=== PATIENT | female | born 1945 | race Caucasian/White ===

== ENCOUNTER 2017-06-06 20:39 | Emergency (ER) | payer MEDICARE ==
[~2017-06-06] VITALS: Ht 157.5 cm; Wt 60.0 kg
[2017-06-06] MEDS ORDERED: ASPIRIN81 MG PO (20:50)
[2017-06-06] MEDS ORDERED: ZOCOR20 M1 PO (20:50)
[2017-06-06] MEDS ORDERED: MULTIVITAMI1 PO (20:51)
[2017-06-06] MEDS ORDERED: FISH OIL1000 MG PO (20:51)
[2017-06-06] MEDS ORDERED: CO Q 10100 MG PO (20:51)
[2017-06-06 21:39] LABS: URINE BILIRUBIN - DIPSTICK NEGATIVE (NEGATIVE); URINE BLOOD DIPSTICK TRACE-INTACT (NEGATIVE); URINE CLARITY CLEAR; URINE COLOR YELLOW; URINE GLUCOSE - DIPSTICK NEGATIVE (NEGATIVE); URINE KETONE NEGATIVE (NEGATIVE); URINE LEUK ESTERASE NEGATIVE (NEGATIVE); URINE NITRITE - DIPSTICK NEGATIVE (Negative); URINE PH 6.5 (4.5-8.0); URINE PROTEIN - DIPSTICK NEGATIVE (NEG-TRACE); URINE UROBILINOGEN - DIPSTICK 0.2 E.U./dL (0.2)
[2017-06-06 21:40] LABS: HEMATOCRIT 39.5 % (37.0-47.0); HEMOGLOBIN 13.8 g/dl (12.0-16.0); IMMATURE GRANULOCYTES 0.3 % (0.0-1.0); MEAN CELL VOLUME 89.6 fL CALC (80.0-100.0); MEAN CORPUSCULAR HGB 31.3 pG CALC (26.0-32.0); MEAN CORPUSCULAR HGB CONC 34.9 g/L CALC (32.0-36.0); NEUT# 8.13 thou/uL (2.00-7.15); RED BLOOD COUNT 4.41 mill/uL (4.20-5.60); RED CELL DISTRI WIDTH 12.4 % (11.5-15.5)
[2017-06-06 21:59] LABS: ALBUMIN 4.9 g/dL (3.2-5.0); ALKALINE PHOSPHATASE 87 u/l (38-126); ANION GAP 17 (6-22 (CALC)); BILIRUBIN, TOTAL 0.6 mg/dL (0.0-1.4); BUN 16 mg/dL (8-23); BUN/CREATININE RATIO 15 (12-20 (CALC)); CALCIUM 9.6 mg/dL (8.4-10.2); CARBON DIOXIDE 24 mmol/l (22-30); CHLORIDE 93 mmol/l (95-108); CREATININE 1.1 mg/dL (0.5-1.0); GFR 49 ML/MIN (>=60 (CALC)); GFR FOR AFR.AMER. 59 ML/MIN (>=60 (CALC)); GLUCOSE 135 mg/dL (82-115); POTASSIUM 3.5 mmol/l (3.5-5.1); SGOT/AST 37 u/l (9-36); SGPT/ALT 32 u/l (11-66); SODIUM 131 mmol/l (137-146)
[2017-06-06 22:12] LABS: MYOGLOBIN 47 ng/mL (0 - 62)
[2017-06-06 22:30] LABS: TSH, 3RD GENERATION 6.46 uIU/mL (0.47 - 4.68)
[2017-06-06 23:09] VITALS: BP 202/82
== END 2017-06-06 23:13 | disposition home or self-care (01) ==
LOC: ED 20:39
DX: I10 Essential (primary) hypertension (principal); R42 Dizziness and giddiness; R94.6 Abnormal results of thyroid function studies

== ENCOUNTER 2017-06-08 13:51 | Inpatient (IN) | payer MEDICARE ==
[2017-06-08] VITALS (10 sets, daily range): BP systolic 116–198; BP diastolic 47–100
[~2017-06-08] VITALS: Ht 157.5 cm; Wt 60.4 kg
[~2017-06-08 13:51] MED LIST: ASPIRIN81 MG PO; CO Q 10100 MG PO; FISH OIL1000 MG PO; MULTIVITAMI1 PO; ZOCOR20 M1 PO
[2017-06-08 14:42] LABS: HEMATOCRIT 45.4 % (37.0-47.0); HEMOGLOBIN 15.5 g/dl (12.0-16.0); IMMATURE GRANULOCYTES 0.4 % (0.0-1.0); MEAN CELL VOLUME 90.8 fL CALC (80.0-100.0); MEAN CORPUSCULAR HGB CONC 34.1 g/L CALC (32.0-36.0); NEUT# 6.67 thou/uL (2.00-7.15); RED CELL DISTRI WIDTH 12.9 % (11.5-15.5)
[2017-06-08 15:15] LABS: ALBUMIN 5.1 g/dL (3.2-5.0); ALKALINE PHOSPHATASE 99 u/l (38-126); ANION GAP 19 (6-22 (CALC)); BILIRUBIN, TOTAL 0.6 mg/dL (0.0-1.4); BUN 17 mg/dL (8-23); BUN/CREATININE RATIO 20 (12-20 (CALC)); CALCIUM 10.2 mg/dL (8.4-10.2); CARBON DIOXIDE 22 mmol/l (22-30); CHLORIDE 101 mmol/l (95-108); CREATININE 0.8 mg/dL (0.5-1.0); GFR > 60 ML/MIN (>=60 (CALC)); GFR FOR AFR.AMER. > 60 ML/MIN (>=60 (CALC)); GLUCOSE 92 mg/dL (82-115); POTASSIUM 4.2 mmol/l (3.5-5.1); SGOT/AST 35 u/l (9-36); SGPT/ALT 39 u/l (11-66); SODIUM 137 mmol/l (137-146); TOTAL PROTEIN 8.2 g/dL (6.3-8.2)
[2017-06-08 15:27] LABS: MYOGLOBIN 155 ng/mL (0 - 62)
[2017-06-08] MEDS ORDERED: ZESTRIL5 M1 PO (16:12)
[2017-06-08] MEDS ORDERED: XANAX0.25 MG PO (16:12)
[2017-06-09] VITALS (14 sets, daily range): BP systolic 114–195; BP diastolic 51–88
[2017-06-09 05:33] LABS: ANION GAP 14 (6-22 (CALC)); BUN 15 mg/dL (8-23); BUN/CREATININE RATIO 20 (12-20 (CALC)); CALCIUM 9.7 mg/dL (8.4-10.2); CARBON DIOXIDE 25 mmol/l (22-30); CHLORIDE 105 mmol/l (95-108); CREATININE 0.8 mg/dL (0.5-1.0); GFR > 60 ML/MIN (>=60 (CALC)); GFR FOR AFR.AMER. > 60 ML/MIN (>=60 (CALC)); GLUCOSE 110 mg/dL (82-115); MAGNESIUM 1.9 mg/dL (1.6-2.3); POTASSIUM 4.1 mmol/l (3.5-5.1); SODIUM 140 mmol/l (137-146)
[2017-06-09 05:35] LABS: HEMATOCRIT 40.3 % (37.0-47.0); HEMOGLOBIN 13.5 g/dl (12.0-16.0); IMMATURE GRANULOCYTES 0.4 % (0.0-1.0); MEAN CELL VOLUME 92.2 fL CALC (80.0-100.0); MEAN CORPUSCULAR HGB 30.9 pG CALC (26.0-32.0); MEAN CORPUSCULAR HGB CONC 33.5 g/L CALC (32.0-36.0); NEUT# 7.29 thou/uL (2.00-7.15); RED BLOOD COUNT 4.37 mill/uL (4.20-5.60)
[2017-06-09] MEDS ORDERED: LOPRESSOR25 MG PO (12:15)
[2017-06-09] MEDS ORDERED: ENOXAPARIN60 MG/0.1 SC (12:15)
[2017-06-09] MEDS ORDERED: LISINOPRIL20 M1 PO (12:15)
[2017-06-09] MEDS ORDERED: COUMADIN3 MG PO (12:16)
== END 2017-06-09 14:05 | disposition home or self-care (01) | DRG 310 ==
LOC: ED 13:51 → ED-I 16:28 → ED 16:42 → MS2 16:43 → ICU 19:03 → MS2 19:03 → UNDODEPER 21:46 → ICU 06-09 14:05
PROVIDERS: Emergency Medicine; ADMIT Internal Medicine; ATTEND Internal Medicine
DX: I48.0 Paroxysmal atrial fibrillation (principal); I10 Essential (primary) hypertension; E78.5 Hyperlipidemia, unspecified; D72.829 Elevated white blood cell count, unspecified
CPT/HCPCS: J1650

== ENCOUNTER 2017-06-15 12:19 | Inpatient (IN) | payer MEDICARE ==
[~2017-06-15] VITALS: Ht 157.5 cm; Wt 59.0 kg
[2017-06-15] VITALS (14 sets, daily range): BP systolic 140–208; BP diastolic 73–110
[~2017-06-15 12:19] MED LIST changes: +COUMADIN3 MG PO; +ENOXAPARIN60 MG/0.1 SC; +LISINOPRIL20 M1 PO; +LOPRESSOR25 MG PO; +XANAX0.25 MG PO; +ZESTRIL5 M1 PO
--- NOTE | 2017-06-15 12:30 | NUR ---
PT TO ROOM 6 W/STEADY GAIT REFUSED WC.
[2017-06-15 12:57] LABS: HEMATOCRIT 41.6 % (37.0-47.0); HEMOGLOBIN 14.1 g/dl (12.0-16.0); IMMATURE GRANULOCYTES 0.4 % (0.0-1.0); MEAN CELL VOLUME 91.4 fL CALC (80.0-100.0); MEAN CORPUSCULAR HGB CONC 33.9 g/L CALC (32.0-36.0); NEUT# 6.9 thou/uL (2.00-7.15); RED BLOOD COUNT 4.55 mill/uL (4.20-5.60); RED CELL DISTRI WIDTH 13.1 % (11.5-15.5)
[2017-06-15 13:08] LABS: ANION GAP 18 (6-22 (CALC)); BUN 17 mg/dL (8-23); BUN/CREATININE RATIO 21 (12-20 (CALC)); CALCIUM 9.8 mg/dL (8.4-10.2); CARBON DIOXIDE 24 mmol/l (22-30); CHLORIDE 99 mmol/l (95-108); CREATININE 0.8 mg/dL (0.5-1.0); GFR > 60 ML/MIN (>=60 (CALC)); GFR FOR AFR.AMER. > 60 ML/MIN (>=60 (CALC)); GLUCOSE 96 mg/dL (82-115); POTASSIUM 4.6 mmol/l (3.5-5.1); SODIUM 137 mmol/l (137-146)
[2017-06-15] MEDS ORDERED: LISINOPRIL10 MG PO (13:14)
--- NOTE | 2017-06-15 13:22 | NUR ---
BP REMAINS ELEVATED MD AWARE NEW ORDERS RECD. PT IS ASYMPTOMATIC.
[2017-06-15] MEDS ORDERED: XARELTO10 MG PO (13:24)
--- NOTE | 2017-06-15 13:53 | NUR ---
CARDENE DRIP STARTED. IV SITE HEALTHY. RESP EVEN AND UNLABORED. NO C/O PAIN. SKIN WDI. BP 224/91 HR SR 71
--- NOTE | 2017-06-15 14:33 | NUR ---
REPORT CALLED TO [facility]IVE, NURSE IN ICU. DAMI UP HELD AT THIS TIME FOR BP 159/70. IV SITE HEALTHY. PT REPORTS FEELING IMPROVED.
--- NOTE | 2017-06-15 14:35 | NUR ---
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 BP STABLE. IV CARDENE ON HOLD. IV SITE HEALTHY.
--- NOTE | 2017-06-15 14:40 | NUR ---
PT ADMITTED TO ICU BED 1 VIA STRETCHER FROM ER, PT STOOD AND AMBULATED TO BATHROOM WITH STRONG STEADY GAIT, COTNINENT OF 600 mL CLEAR YELLOW URINE, AMBULATED TO STANDING SCALE WEIHGT OBTAINED THEN INTO BED WITH NO ASSIST PT TOLERATED ACTIVITY W/O INCIDENT, IV AT KVO AND CARDENE GTT CURRENTLY ON HOLD (PLACED ON HOLD IN ER) WILL MONITOR B/P CLOSELY, ADMISSION ASSESSMENT COMPLETED SEE INTERVENTIONS PT WAS HERE RECENTLY WITH SAME COMPLAINT NEW ONSET HYPERTENSION & A FIB, TELE CURRENTLY READING SR RATE INT HE 70'S SEE INTERVENTION FOR BP PT AFEBRILE, SKIN INTACT EXCEPT FOR 2 ECCHYMOTIC AREAS TO R FA FROM RECENT HOSPITAL VISIT (FROM LAB STICK AND IV ATTEMPT) PT OFFERS NO COMPLAINTS, AFEBRILE, LUNGS CLEAR WITH ACTIVE BS, LAST BM TODAY PT DENIES DIFFICULTIES, ALL MONITORING EQUIPMENT EXPLAINED PRIOR TO APPLICATION, SAFETY MEASURES INTRODCUED, CALL ARNDT WITHIN REACH, WILL CONTINUE TO MONITOR.
--- NOTE | 2017-06-15 15:42 | NUR ---
PT RESTING DAMI FERNANDEZ ON HOLD SPOUSE AT BEDSIDE, OFFERS NO EW COMPLAINTS, CALL ARNDT WITHIN REACH
--- NOTE | 2017-06-15 17:25 | NUR ---
SET UP ASSIST PROVIDED FOR PM MEAL, OFFERS NO OTHER COMPLATINS, SPOUSE REMAINS AT BEDSIDE
--- NOTE | 2017-06-15 18:38 | NUR ---
PT AMBULATED TO BATHROOM AND BACK, TOLERATED ACTIVITY WELL, CONTINENT OF CLEAR YELLOW URINE, PROVIDES OWN ULICES CARE, CALL ARNDT WITHIN REACH
--- NOTE | 2017-06-15 19:13 | NUR ---
pt awake in bed; no distress noted; pt offers no complaints; spouse present at bedside; assessment completed; pt alert and oriented; denies pain/chest pain; no dizziness/headache; resp even and unlabored; lungs clear; skin color wnl; ra; hr irreg; strong pulses; no edema noted; sa/pac on monitor; abd soft with bs present; no bm noted per designer/writer; no urine to inspect at this time; #20 in lac flushed and patent; no redness or edema noted; plan of care explained; pt encouraged to use call light; denies needs; will continue to monitor
--- NOTE | 2017-06-15 19:35 | NUR ---
pt requesting Max; notified of same; orders to be placed
--- NOTE | 2017-06-15 19:55 | NUR ---
awake; spouse at bedside; offers no complaints; no distress noted; sr/pac on monitor; updated in plan of care including continuation of home meds; call light within reach; will continue to monitor
--- NOTE | 2017-06-15 22:09 | NUR ---
awake; no distress noted; pt offers no complaints; iv intact; spouse at bedside; sb/pac on monitor; call light within reach; will continue to monitor
--- NOTE | 2017-06-15 23:10 | NUR ---
awake resting in bed; bp 208/110, hr 69; bp correlate with left arm 202/95; medicated with apresoline as per orders; pt denies chest pain/headache; asymptomatic; will continue to monitor
--- NOTE | 2017-06-15 23:58 | NUR ---
awake; no distress noted; continues with htn (improved); spouse at bedside; no distress noted; resp even and unlabroed; sr/pac on monitor; pt admits hands and feet become cold when bp elevated; trop obtained; pt denies needs; call light within reach; will continue to monitor
[2017-06-16] VITALS (22 sets, daily range): BP systolic 127–186; BP diastolic 52–91
--- NOTE | 2017-06-16 02:08 | NUR ---
resting with eyes closed; easily aroused; offers no complaints; no distress noted; sr on monitor; spouse at bedside; call light within reach; will continue to monitor
--- NOTE | 2017-06-16 04:06 | NUR ---
asleep; easily aroused; offers no complaints; denies needs; spouse at bedside; iv intact; sr/pac on monitor; call light within reach; will continue to monitor
--- NOTE | 2017-06-16 06:16 | NUR ---
awake in bed; no distress noted; iv flushed and patent; no redness or edema noted at site; medicated with apresoline for elevated bp; sr/pac on monitor; spouse at bedside; no complaints throughout the night; bed in lowest position; call light within reach
[2017-06-16 06:40] LABS: HEMATOCRIT 43.4 % (37.0-47.0); HEMOGLOBIN 14.5 g/dl (12.0-16.0); IMMATURE GRANULOCYTES 0.1 % (0.0-1.0); MEAN CELL VOLUME 92.3 fL CALC (80.0-100.0); MEAN CORPUSCULAR HGB 30.9 pG CALC (26.0-32.0); MEAN CORPUSCULAR HGB CONC 33.4 g/L CALC (32.0-36.0); NEUT# 5.53 thou/uL (2.00-7.15); RED BLOOD COUNT 4.7 mill/uL (4.20-5.60); RED CELL DISTRI WIDTH 13.2 % (11.5-15.5)
--- NOTE | 2017-06-16 07:02 | NUR ---
PT ALERT AND ORIENTED, RESTING IN BED, TELE WAS READING SR WITH PAC'S RATE OF 76, CURRENTLY IN A FIB RATE OF 115-140, (STRIP PLACED ON CHART) BP STABLE SEE INTERVENTIONS, HAD RECENT PRN DOSE OF HYDRALAZINE PER REPORT, REINFORCED PT EDUCATION REGARDING A FIB (RECENTLY DIAGNOSED LAST WEEK ALONG WITH DX OF HTN) PT ANXIOUS STATING SHE CAN FEEL IT, "I CAN'T EXPLAIN HOW I FEEL IT I JUST DO" DENIES PAIN, N/V LIGHTHEADEDNESS OR DIZZINESS, COMFORT MEASURES PROVIDED, EMOTIONAL SUPPORT PROVIDED, EDUCATED REGARDING DIAGNOSIS, PLAN OF CARE AND POSSBILE TREATMENT OPTIONS ETC...ALL QUESTIONS ANSWERED, AM ASSESSMENT COMPLETED, SEE INTERVENTIONS, IV SITE INTACT IN LEFT AC, SALINE LOCKED, SKIN WARM DRY AND INTACT, ENCOURAGED TO CALL FOR ANY NEEDED ASSISTANCE, CALL ARNDT WITHIN REACH.
[2017-06-16 07:09] LABS: ANION GAP 17 (6-22 (CALC)); BUN 14 mg/dL (8-23); BUN/CREATININE RATIO 19 (12-20 (CALC)); CALCIUM 9.9 mg/dL (8.4-10.2); CARBON DIOXIDE 24 mmol/l (22-30); CHLORIDE 105 mmol/l (95-108); CREATININE 0.7 mg/dL (0.5-1.0); GFR > 60 ML/MIN (>=60 (CALC)); GFR FOR AFR.AMER. > 60 ML/MIN (>=60 (CALC)); GLUCOSE 118 mg/dL (82-115); POTASSIUM 4.2 mmol/l (3.5-5.1); SODIUM 142 mmol/l (137-146)
--- NOTE | 2017-06-16 07:35 | NUR ---
PT RESTING REMAINS IN A FAIB RATE 120-150, BP REMAINS STABLE, PT CONTINUES TO DENY SPECIFIC COMPLAINTS, JUST STATES I'M OK I CAN FEEL IT BUT I'M OKAY" NO OBVIOUS S/S OF DISCOMFORT NOTED, SATS REMAIN 100% ON ROOM AIR.
--- NOTE | 2017-06-16 07:40 | NUR ---
AWARE OF A FIB AND RATE, NEW ORDERD REC'D, SPOUSE AT BEDSIDE, BREAKFAST AT BEDSIDE, DECLINES WANTING TO EAT BUT STATES "LEAVE IT FOR NOW, IN CASE I CHANGE MY MIND" COMFORT MEASURES PROVIDED, CALL ARNDT WITHIN REACH.
--- NOTE | 2017-06-16 07:45 | NUR ---
WHILE THIS NURSE AT BEDSIDE SPEAKING WITH PATIENT AND HER SPOUSE REGARDING DX, PLAN, MEDS ETC..PT CONVERTS BACK TO SR RATE 80'S . BP REMAINS STABLE 151/80, CALL ARNDT WITHIN REACH, CARDIZEM IV PUSH HELD AT THIS TIME RELATED TO CONVERSION
--- NOTE | 2017-06-16 08:31 | NUR ---
PT RESTING IN BED, NO S/S OF DISTRESS NTOED, ABD SOFT AND BS ACTIVE, SKIN WARM DRY AND INTACT, REMAINS IN SR RATE 68, CALL ARNDT WITHIN REACH.
--- NOTE | 2017-06-16 09:30 | NUR ---
PT AMBULATES TO BATHROOM WITH STEADY GAIT, TOLERATES ACTIVITY WELL, BACK TO BED WITH SAME GAIT, SPOUSE REMAINS AT BEDSIDE, CALL ARNDT WITHIN REACH.
--- NOTE | 2017-06-16 10:33 | NUR ---
INTO SEE PATIENT, PLAN OF CARE DISCUSSED
--- NOTE | 2017-06-16 10:52 | NUR ---
PT EDUCATED REGARDING MEDICATION CHANGES, TAKES PO MEDICATIONS W/O INCIDENT, CALL ARNDT WITHIN REACH, SPOUSE HEADING HOME AT THIS TIME, CALL ARNDT WITHIN REACH.
--- NOTE | 2017-06-16 11:56 | NUR ---
LAB AT BEDSIDE FOR BLOOD WORK
--- NOTE | 2017-06-16 12:49 | NUR ---
PT RESTING, TOLERATED AFTERNOON MEAL WELL, OFFERS NO NEW COMPLAINTS, CALL ARNDT WITHIN REACH
--- NOTE | 2017-06-16 13:33 | NUR ---
PT RESTING, DOZES INTERMITTENLY, SPOUSE BACK AT BEDSIDE, OFFERS NO NEW COMPLAINTS, VS STABLE, CALL ARNDT WITHIN REACH
--- NOTE | 2017-06-16 13:45 | NUR ---
PT AMBULATED TO BATHROOM WITH STRONG STEADY GAIT, CONTINENT OF MODERATE AMOUNTS CLEAR YELLOW URINE AND BACK TO BED WITH SAME, TOLERATED ACTIVITY WELL, WILL CONTINUE TO MONITOR
--- NOTE | 2017-06-16 14:48 | NUR ---
PT RESTING, SPOUSE AT BEDSIDE, OFFERS NO COMAPLTINS, TELE CONTINUES TO READ SR SB RATE 55-65, CALL ARNDT WITHIN REACH
--- NOTE | 2017-06-16 15:59 | NUR ---
PT AMBULATED TO BATHROOM, REMAINS AT BEDSIDE
--- NOTE | 2017-06-16 17:16 | NUR ---
MEDICATED PRN FOR ELEVATED BP, WILL RE-CHECK SHORTLY, WILL CONTINUE TO MONITOR.
--- NOTE | 2017-06-16 17:36 | NUR ---
REPEAT BP 166/65. PT TOELRATED PM MEAL WELL OFFERS NO NEW COMPLAINTS,S POUSE REMAINS AT BEDSIDE
--- NOTE | 2017-06-16 19:20 | NUR ---
pt awake in bed; spouse present at bedside; no distress noted; assessment completed at this time; pt alert and oriented; denies pain/ chest palpitations; pt noted to anxious about elevated bp and hr/ pt reassured; resp even and unlabored; lungs clear; ra; skin color wnl; hr reg; strong pulses; no edema noted; sr/pac on monitor; abd soft with bs present; no bm noted; voiding clear yellow urine without complication; #20 in lac flushed and patent; no redness or edema noted at site; plan of care/pm meds explained; xarelto and lipitor administered at this time as per pt request/ normal home schedule for meds is 1929; po fluids provided; call light within reach; will continue to monitor
--- NOTE | 2017-06-16 20:02 | NUR ---
awake; no distress noted; spouse at bedside; pt offers no complaints; iv intact; sr/pac on monitor; call light within reach; will continue to monitor
--- NOTE | 2017-06-16 21:12 | NUR ---
awake; offers no complaints; denies pain; spouse at bedside; iv intact; sr/pac on monitor; voiding without complication; will continue to monitor
--- NOTE | 2017-06-16 22:01 | NUR ---
resting in bed with eyes closed; easily aroused; offers no complaints; no distress noted; sr/pac on monitor; spouse at bedside; deny needs; call light within reach; will continue to monitor
[2017-06-17] VITALS (8 sets, daily range): BP systolic 144–197; BP diastolic 69–92
--- NOTE | 2017-06-17 00:22 | NUR ---
pt awake in bed; no distress noted; pt offers no complaints; spouse present at bedside; sr 67 on monitor; digoxin iv push slowly given; slight tenderness when touched noted at iv site; up to bathroom; vss; call light within reach; will continue to monitor closely
--- NOTE | 2017-06-17 02:12 | NUR ---
resting with eyes closed; no distress noted; sb/pac on monitor; call light within reach; will continue to mointor
--- NOTE | 2017-06-17 04:02 | NUR ---
awake; no distress noted; offers no complaints; sr/pac in monitor; spouse at bedside; call light within reach; will continue to monitor
--- NOTE | 2017-06-17 05:05 | NUR ---
awake; assist to bathroom; no distress noted; pt offers no complaints; #209 removed from lac with catheter tip intact; slight redness and tenderness ntoed to site; #22 started in lw x1 attempt; am labs obtained; po fluids provided; sb/pac on monitor; call light within reach; will continue to monitor
[2017-06-17 05:51] LABS: ANION GAP 15 (6-22 (CALC)); BUN 15 mg/dL (8-23); BUN/CREATININE RATIO 19 (12-20 (CALC)); CALCIUM 9.7 mg/dL (8.4-10.2); CARBON DIOXIDE 24 mmol/l (22-30); CHLORIDE 105 mmol/l (95-108); CREATININE 0.8 mg/dL (0.5-1.0); GFR > 60 ML/MIN (>=60 (CALC)); GFR FOR AFR.AMER. > 60 ML/MIN (>=60 (CALC)); GLUCOSE 97 mg/dL (82-115); POTASSIUM 4.7 mmol/l (3.5-5.1); SODIUM 139 mmol/l (137-146)
--- NOTE | 2017-06-17 06:05 | NUR ---
awake; no distress noted; offers no complaints; digoxin held/ sb on monitor; no change in assessment; bed in lowest position; call light within reach
--- NOTE | 2017-06-17 07:45 | NUR ---
PT A/O X3; DENIES PAIN; NO COMPLAINTS VOICE; PT SR 74 HR; SPOUSE AT BEDSIDE; CALL ARNDT WITHIN REACH;WILL CONTINUE TO MONITOR.
--- NOTE | 2017-06-17 07:55 | NUR ---
PT RESTING WITH EYES CLOSED; REFUSE BREAKFAST AT THIS TIME; SB 45 ON MONITOR; CALL ARNDT WITHIN REACH;WILL CONTINUE TO MONITOR.
[2017-06-17 09:18] LABS: CHOLESTEROL HDL RATIO 2.3 (<4.4 (CALC))
--- NOTE | 2017-06-17 10:08 | NUR ---
PT AMBULATORY TO BRP; VOIDS WELL; NO COMPLAINTS VOICED
--- NOTE | 2017-06-17 10:20 | NUR ---
DR. GONZALES IN TO SEE PT; PLAN OF CARE DISCUSSED
--- NOTE | 2017-06-17 12:39 | NUR ---
DR. RINCON IN TO SEE PT; PLAN OF CARE DISCUSSED
[2017-06-17] MEDS ORDERED: LOPRESSOR 550 MG/TAB PO (12:51)
[2017-06-17] MEDS ORDERED: DIGOXIN0.125 MG PO (12:51)
[2017-06-17] MEDS ORDERED: AMLODIPINE BESYL5 MG PO (12:51)
--- NOTE | 2017-06-17 13:37 | NUR ---
Discharge instructions given. Patient verbalizes understanding of same. Discharged in stable condition via Wheelchair to Home with family. All belongings sent with pt.
== END 2017-06-17 13:55 | disposition home or self-care (01) | DRG 305 ==
LOC: ED 12:19 → ED-I 13:28 → ED 13:52 → ICU 13:53
PROVIDERS: Family Medicine; Nurse Practitioner Family; ADMIT Internal Medicine; ATTEND Internal Medicine
DX: I16.0 Hypertensive urgency (principal); I48.92 Unspecified atrial flutter; I10 Essential (primary) hypertension; I48.0 Paroxysmal atrial fibrillation; E78.5 Hyperlipidemia, unspecified; Z79.01 Long term (current) use of anticoagulants
CPT/HCPCS: J1160

== ENCOUNTER 2017-08-04 17:07 | Emergency (ER) | payer MEDICARE ==
[~2017-08-04] VITALS: Ht 157.5 cm; Wt 59.0 kg
[~2017-08-04 17:07] MED LIST changes: +AMLODIPINE BESYL5 MG PO; +DIGOXIN0.125 MG PO; +LISINOPRIL10 MG PO; +LOPRESSOR 550 MG/TAB PO; +XARELTO10 MG PO
[2017-08-04] MEDS ORDERED: PROTONIX40 M2 PO (17:47)
[2017-08-04 18:34] VITALS: BP 169/83
== END 2017-08-04 18:34 | disposition home or self-care (01) ==
LOC: ED 17:07
DX: I10 Essential (primary) hypertension (principal); R51 Headache; I48.91 Unspecified atrial fibrillation; Z79.82 Long term (current) use of aspirin; R42 Dizziness and giddiness

== ENCOUNTER 2018-10-14 13:11 | Emergency (ER) | payer MEDICARE ==
[~2018-10-14] VITALS: Ht 157.5 cm; Wt 60.0 kg
[~2018-10-14 13:11] MED LIST changes: +PROTONIX40 M2 PO
[2018-10-14 13:59] LABS: URINE BILIRUBIN - DIPSTICK NEGATIVE (NEGATIVE); URINE BLOOD DIPSTICK NEGATIVE (NEGATIVE); URINE COLOR YELLOW; URINE GLUCOSE - DIPSTICK NEGATIVE (NEGATIVE); URINE KETONE NEGATIVE (NEGATIVE); URINE LEUK ESTERASE TRACE (NEGATIVE); URINE NITRITE - DIPSTICK NEGATIVE (Negative); URINE PROTEIN - DIPSTICK NEGATIVE (NEG-TRACE); URINE UROBILINOGEN - DIPSTICK 0.2 E.U./dL (0.2)
[2018-10-14 14:16] LABS: HEMATOCRIT 42.8 % (37.0-47.0); HEMOGLOBIN 14.3 g/dl (12.0-16.0); IMMATURE GRANULOCYTES 0.7 % (0.0-5.0); MEAN CELL VOLUME 94.1 fL CALC (80.0-100.0); MEAN CORPUSCULAR HGB 31.4 pG CALC (26.0-32.0); MEAN CORPUSCULAR HGB CONC 33.4 g/L CALC (32.0-36.0); NEUT# 21.05 thou/uL (2.00-7.15); RED BLOOD COUNT 4.55 mill/uL (4.20-5.60); RED CELL DISTRI WIDTH 12.9 % (11.5-15.5)
[2018-10-14 14:32] LABS: ALBUMIN 4.4 g/dL (3.2-5.0); BILIRUBIN, TOTAL 0.6 mg/dL (0.0-1.4); CREATININE 1.1 mg/dL (0.5-1.0); POTASSIUM 4.2 mmol/l (3.5-5.1); TOTAL PROTEIN 7.2 g/dL (6.3-8.2)
[2018-10-14] MEDS ORDERED: METOPROL TAR25 MG PO (15:34)
[2018-10-14] MEDS ORDERED: ZOFRAN4 MG/TAB PO (16:35)
[2018-10-14] MEDS ORDERED: METRONIDAZOL500 MG PO (16:35)
[2018-10-14] MEDS ORDERED: CIPROFLOXACN500 MG PO (16:35)
[2018-10-14 16:39] VITALS: BP 155/80
== END 2018-10-14 16:46 | disposition home or self-care (01) ==
LOC: ED 13:11
PROVIDERS: Family Medicine
DX: K52.9 Noninfective gastroenteritis and colitis, unspecified (principal); R10.31 Right lower quadrant pain; R10.32 Left lower quadrant pain; R19.7 Diarrhea, unspecified; I10 Essential (primary) hypertension; I48.91 Unspecified atrial fibrillation; R19.5 Other fecal abnormalities
CPT/HCPCS: Q9967